=== PATIENT | female | born 1935 | race Caucasian/White ===

== ENCOUNTER 2016-10-07 03:49 | Inpatient (IN) | payer OTHER ==
[~2016-10-07] VITALS: Ht 152.4 cm; Wt 69.4 kg
[~2016-10-07 03:49] MED LIST: ATORVASTATIN CA20 M1; FUROSEMIDE20 M1 PO; LISINOPRIL40 M1 PO; MAGNESIUM PO; VITAMIN B12 PO; VITAMIN D31000 UNI1 PO; ZINC50 M2 PO
[2016-10-07] MEDS ORDERED: PRILOSEC OTC20 M1 PO (10:24)
[2016-10-07] MEDS ORDERED: DILAUDID2 M1 PO (10:24)
[2016-10-07] MEDS ORDERED: ASPIRIN EC325 M2 PO (10:24)
[2016-10-07] MEDS ORDERED: COLACE100 M1 PO (10:24)
[2016-10-07] MEDS ORDERED: MIRALAX17 G1 PO (10:24)
--- NOTE | 2016-10-07 10:27 | Patient Discharge Instructions ---
Discharge Instructions General Discharge Information You were seen/treated for: Right Knee pain secondary to osteoarthritis You had these procedures: Right total knee replacement Watch for these problems: Increasing pain, redness, warmth, swelling. Drainage of any type from incision. Inability to bear weight on right leg. Fever greater than 101.5. Do not soak the wound: Yes No bath, but you may shower: Yes Other wound care: Keep wound clean and dry Special Instructions: Incision: Dry dressing. May shower. No baths. No ointments of any kind. Ice as needed. Bowel regimen: Colace and or MiraLAX Weight-bearing as tolerated Follow-up with Dr. Angel in 6 weeks. Call office for fevers greater than 101.5, excessive drainage or inability to bear weight on operative extremity. Visiting nurse will change dressing. Diet Continue normal diet: Yes Recommended Diet: Heart Healthy Additional DIET Information: Advance as tolerated Activity Full Activity/No Limits: No Activity Self Limited: Yes Pounds, do NOT lift more than: 10 Additional ACTIVITY Info: Weight-bear as tolerated on right leg Acute Coronary Syndrome Inclusion Criteria At DC or during hospital stay patient has or had the following: ACS DIAGNOSIS No Discharge Core Measures Meds if any: Prescribed or Continued at Discharge Meds if any: NOT Prescribed or Continued at Discharge Congestive Heart Failure Inclusion Criteria At DC or during hospital stay patient has or had the following: CHF DIAGNOSIS No Discharge Core Measures Meds if any: Prescribed or Continued at Discharge Meds if any: NOT Prescribed or Continued at Discharge Cerebrovascular accident Inclusion Criteria At DC or during hospital stay patient has or had the following: CVA/TIA Diagnosis No Discharge Core Measures Meds if any: Prescribed or Continued at Discharge Meds if any: NOT Prescribed or Continued at Discharge Venous thromboembolism Inclusion Criteria VTE Diagnosis No VTE Type NONE VTE Confirmed by (Test) NONE Discharge Core Measures - Per Current guidelines, there needs to be overlap - treatment for the first 5 days of Warfarin therapy. - If discharged on Warfarin prior to 5 days of - overlap therapy, the patient will need to be - assessed for post discharge needs including - *Post discharge parental anticoagulation - *Warfarin and/or parental anticoagulation education - *Follow up date to check INR post discharge At least 5 days overlap therapy as Inpatient No Meds if any: Prescribed or Continued at Discharge Note: Overlap Therapy is Warfarin and Anticoagulant Meds if any: NOT Prescribed or Continued at Discharge
--- NOTE | 2016-10-07 10:28 | Admission Core Measures ---
Admission Meds I reviewed the following Meds: Current Medications Sig/Justo Start time Last Medication Dose Stop Time Status Admin Acetaminophen 975 MG ONCE 10/07 0000 NR (Tylenol) 10/07 2358 Atorvastatin Calcium 20 MG QPM 10/07 2199 UNVr (Lipitor) Cefazolin Sodium 2,000 MG ONCE 10/07 0000 NR (Kefzol-Ancef Inj) 10/07 2358 Furosemide 20 MG .[D] 10/07 1015 UNVr (Lasix) Lisinopril 40 MG QPM 10/07 2199 UNVr (Prinivil) Oxycodone HCl 10 MG ONCE 10/07 0000 NR (Roxicodone) 10/07 2358 Ropivacaine 500 ML ONCE ONE 10/07 0830 AC (NAROPIN) 10/09 0209 ON-Q Ball 1 BAG Acute Coronary Syndrome Inclusion Criteria ACS Diagnosis No Inpatient Core Measures LDL Reminder: If No, please order W/I first 24hr of stay Congestive Heart Failure Inclusion Criteria CHF Diagnosis No Cerebrovascular accident Inclusion Criteria CVA/TIA Diagnosis No Inpatient Core Measures Bedside Swallow Eval Reminder: If BSE failed, place ST order Antithrombotic Reminder: Order Antithrombotic Medication by end of day 2 Antithrombotic Reminder: Document Reason Antithrombotic Not ordered by end of day 2 AFIB/Flutter Reminder: If Present, add to problem list AFIB/Flutter Reminder: Order Anticoag Medication for pts with AFIB/Flutter Atherosclerosis Reminder: If Present, add to problem list LDL Reminder: If No, please order W/I first 24hr of stay PT Order Reminder: If No, please order Venous thromboembolism Inpatient Core Measures VTE Risk Factors: Age > 40, Surgery No [facility] VTE prophylaxis d/t No contraindications No VTE Pharm Prophylaxis d/t No contraindications Inclusion Criteria - Per Current guidelines, there needs to be overlap - treatment for the first 5 days of Warfarin therapy. - Parenteral Anticoagulation (IV or SC) needs to be - given along with Warfarin therapy. VTE Diagnosis No VTE Type NONE VTE Confirmed by (Test) NONE Problem List As ranked by this Provider includes Assessment & Plan 1. Unilateral primary osteoarthritis, right knee HOME MEDS Home Med List Aspirin (Ecotrin*) 325 MG TABLET. 1 TAB PO BID ANTICOAGULATION Cholecalciferol (Vitamin D3) (Vitamin D3) 1,000 UNIT CAPSULE 2 TAB PO DAILY PROPHO (Reported) Docusate Sodium (Colace) 100 MG CAPSULE 1 CAP PO BID CONSITPATION Furosemide 20 MG TABLET 20 MG PO D EDEMA (Reported) Hydromorphone HCl (Dilaudid) 2 MG TABLET 1-2 TAB PO Q4-6 PRN PAIN Lisinopril 40 MG TABLET 40 MG PO D BP (Reported) [MAGNESIUM] 250 MG 1 TAB PO DAILY PROPHO (Reported) Omeprazole Magnesium (Prilosec Otc) 20 MG TABLET.DR 1 TAB PO DAILY GI PROTECTION Polyethylene Glycol 3350 (Miralax) 17 GRAM POWD.PACK 1 PAC PO DAILY CONSTIPATION [VITAMIN B12] 500 MG 1 TAB PO DAILY PROPHP (Reported) ZINC 50 MG TABLET 1 TAB PO DAILY PROPHO (Reported)
--- NOTE | 2016-10-07 10:30 | Surgical Discharge Summary ---
Visit Information Visit Dates Admission Date: 10/07/16 Discharge Date: 10/09/16 History of Present Illness Chief Complaint: Right knee pain Surgical History Pertinent Surgical History: non-contributory Review of Systems: See H&P Hospital Course Course Attending Physician: SHANIQUE LOJA MD Primary Care Physician: JET LORA MD Hospital Course: Rosa was admitted to the hospital on 10/07/2016 for an elective right total knee replacement. She tolerated the procedure well. She was transferred to a general surgical floor. Her diet was advanced and tolerated. Her vital signs were stable and within normal limits. She voided spontaneously. Her pain was well controlled with oral pain medications. She was evaluated and treated by physical therapy. She was deemed appropriate for discharge. Allergies: Coded Allergies: No Known Allergies (10/01/16) Disposition Summary Disposition Principal Diagnosis: Right knee unilateral primary osteoarthritis Additional Diagnosis: None Discharge Disposition: home health services Discharge Instructions General Discharge Information Code Status: Full Code Patient's Diet: Heart healthy, advance as tolerated Patient's Activity: Weight-bear as tolerated on right leg Follow-Up Instructions/Appts: Incision: Dry dressing. May shower. No baths. No ointments of any kind. Ice as needed. Bowel regimen: Colace and or MiraLAX Weight-bearing as tolerated Follow-up with Dr. Loja in 6 weeks. Call office for fevers greater than 101.5, excessive drainage or inability to bear weight on operative extremity. Visiting nurse will change dressing. Medications at Discharge Discharge Medications: Continue taking these medications: Lisinopril (Lisinopril) 40 MG TABLET 40 Milligram ORAL Every Day Instructions: NIGHTLY Comments: Last Taken: 10/08/16 Time: 900 PM Atorvastatin Calcium (Atorvastatin Calcium) 20 MG TABLET Instructions: NIGHTLY Comments: Last Taken: 10/08/16 Time: 900 PM Furosemide (Furosemide) 20 MG TABLET 20 Milligram ORAL Every Day Comments: Last Taken: 10/09/16 Time: 1000 Cholecalciferol (Vitamin D3) (Vitamin D3) 1,000 UNIT CAPSULE 2 Tablet ORAL DAILY Comments: NOT GIVEN IN HOSPITAL [VITAMIN B12] 500 MG 1 Tablet ORAL DAILY Comments: NOT GIVEN IN HOSPITAL ZINC (ZINC) 50 MG TABLET 1 Tablet ORAL DAILY Comments: NOT GIVEN IN HOSPITAL [MAGNESIUM] 250 MG 1 Tablet ORAL DAILY Comments: NOT GIVEN IN HOSPITAL Start taking the following new medications: Aspirin (Ecotrin*) 325 MG TABLET.DR 1 Tablet ORAL TWICE DAILY Qty = 60 No Refills Comments: Last Taken: 10/09/16 Time: 1000 Docusate Sodium (Colace) 100 MG CAPSULE 1 Capsule ORAL TWICE DAILY Qty = 14 No Refills Instructions: DISCONTINUE USE IF YOU DEVELOP LOOSE STOOL OR DIARRHEA Comments: Last Taken: 10/09/16 Time: 1000 Hydromorphone HCl (Dilaudid) 2 MG TABLET 1-2 Tablet ORAL EVERY 4-6 HOURS as needed for PAIN Qty = 36 No Refills Comments: Last Taken: 10/09/16 Time: 700 AM Polyethylene Glycol 3350 (Miralax) 17 GRAM POWD.PACK 1 Packet ORAL DAILY Qty = 7 No Refills Instructions: dissolve in water, DISCONTINUE USE IF YOU DEVELOP LOOSE STOOL OR DIARRHEA Comments: Last Taken: 10/09/16 Time: 1000 Omeprazole Magnesium (Prilosec Otc) 20 MG TABLET.DR 1 Tablet ORAL DAILY Qty = 30 No Refills Comments: Last Taken: 10/09/16 Time: 700 AM
--- NOTE | 2016-10-07 14:23 | Operative Report ---
Operative/Inv Procedure Report Surgery Date: 10/07/16 Name of Procedure: Right total knee replacement Pre-Operative Diagnosis: Primary right knee DJD Post-Operative Diagnosis: Same Estimated Blood Loss: 50ml to 100ml Surgeon/Security And Privacy Consultant: FREEDOM TROY,SHANIQUE Hardin Anesthesia: block Operative/Procedure Note Note: Description of Procedure: The patient was taken to the operating room and positively identified. After induction of spinal anesthesia and administration of appropriate pre-operative antibiotics, the patient was positioned supine on the operating room table and all bony prominences were well padded. A well-padded pneumatic tourniquet was placed on the right upper thigh. After performing a surgical timeout, the right lower extremity was prepped and draped in the usual sterile fashion. After exsanguination with Esmarch the tourniquet was inflated to 250mm of mercury. A standard medial parapatellar approach was made to the knee. This was carried down through skin and subcutaneous tissue to the level of the fascia. Meticulous hemostasis was maintained with Bovie electrocautery. The extensor mechanism and patellar retinaculum were opened sharply and the patella was everted. The infrapatellar fat was resected in order to improve exposure. Osteophytes were trimmed from the patella and femoral condyles and the patella was re-everted and tucked laterally. A medial release was performed and the cruciate ligaments were resected. The tibia was then subluxed anteriorly. Utilizing the appropriate extra-medullary guide, the proximal tibia was trimmed perpendicular to the long axis of the tibial shaft. Attention was then turned to the femur. After opening the medullary canal, the distal femoral cut was made in 6 degrees of valgus utilizing the appropriate intra-medullary guide. The extension gap was checked and found to be appropriate. The femur was then sized and the remainder of the femoral cuts were made with a size 3 4-in-1 femoral cutting guide. The flexion gap was checked and found to be symmetric and appropriate. The knee was then trialed with a size 3 femoral component, a size 9 tibial component and a size 32 mm polyethylene insert. The patella was trimmed to accept an A[patella] patella. This yielded excellent range of motion , stability and patellar tracking. All trial components were removed and the knee was copiously irrigated with sterile saline. All components were cemented into place with Patricia Simplex cement. All the components were of the Patricia Triathlon knee system of the above stated sizes. The knee was again irrigated after cementation. The extensor mechanism and patellar retinaculum were repaired using interrupted #1 vicryl suture. The skin was re-approximated with 2-0 vicryl and closed with jaun. A sterile dressing was applied, the tourniquet was deflated, the patient was awakened and taken to the recovery room in satisfactory condition.
[2016-10-07 15:00] VITALS: BP 122/68
--- NOTE | 2016-10-07 15:30 | PN- Orthopedic ---
Subjective Subjective: Postop day 0 status post right total knee arthroplasty. Patient was complaining of moderate pain, received a dose of pain medication and is comfortable. She has an On-Q, she has no other complaints. Objective Vital Signs and I&Os Vital Signs Date Time Temp Pulse Resp B/P Pulse O2 O2 Flow FiO2 Ox Delivery Rate 10/07 1500 98.4 82 18 122/68 96 Room Air Room Air Physical Exam: Well-developed well-nourished no apparent distress. HEENT: Atraumatic, extraocular motion intact Neck: Supple, no lymphadenopathy Respiratory: No respiratory distress Extremities: No edema RIGHT lower extremity dressing in place, Range of motion is 0-[address] ALPS in place Neurovascularly intact distally Bilateral calves are supple, nontender. Neuro: Alert and oriented x3 Psych: Mood affect normal, normal memory normal judgment. Skin: Warm and dry, no rash on exposed skin Assessment/Plan Assessment/Plan Postop day 0 status post right total knee arthroplasty. -Aspirin 325 mg by mouth twice a day for DVT prophylaxis. -Prilosec for GI prophylaxis -Pain medication as needed -Out of bed with physical therapy, weightbearing as tolerated, work on knee range of motion -Ancef For infectious prophylaxis for 2 doses -on-Q per anesthesia -History of high cholesterol hypertension continue lisinopril atorvastatin Lasix. Will monitor. -History of diabetes, not currently on any medication for diabetes as outpatient , will check fingersticks and give insulin as needed Core Measures/Miscellaneous Venous Thromboembolism VTE Risk Factors: Age > 40, Surgery VTE Contraindications: No Contraindications VTE Diagnosis: No VTE Type: NONE VTE Confirmed by (Test): NONE Beta Joel Is Beta Joel a Home Med? No Antibiotics Is Patient on Antibiotics? Yes If Yes: prophylaxis
[2016-10-07 17:00] VITALS: BP 130/70
[2016-10-07 19:30] VITALS: BP 132/62
[2016-10-07 21:08] VITALS: BP 126/64
--- NOTE | 2016-10-08 00:16 | NUR ---
ALERT AND ORIENTED X 3. VITAL SIGNS STABLE. DENIES CHEST PAIN. + PULSES DSG C/D/I. MEDICATION GIVEN FOR PAIN WILL CONTINUE TO MONITOR
[2016-10-08 04:00] VITALS: BP 135/60
[2016-10-08 07:44] VITALS: BP 118/57
--- NOTE | 2016-10-08 07:56 | PN- Orthopedic ---
Subjective Subjective: The patient was seen this morning postoperatively day #1. She reports that her pain is under adequate control and has no other complaints at the current time. Objective Vital Signs and I&Os Vital Signs Date Time Temp Pulse Resp B/P Pulse O2 O2 Flow FiO2 Ox Delivery Rate 10/08 0744 98.4 58 20 118/57 93 Room Air 10/08 0400 99.3 64 20 135/60 95 Room Air 10/07 2238 66 119/60 10/07 2108 97.8 85 20 126/64 93 Room Air 10/07 1930 98.8 92 18 132/62 94 Room Air 10/07 1700 98.6 85 20 130/70 96 Room Air 10/07 1500 98.4 82 18 122/68 96 Room Air Room Air Intake & Output 10/08 0800 10/08 0000 10/07 1600 10/07 0800 10/07 0000 /14 1600 Intake Total 820 400 Output Total 600 900 Balance 220 -500 Intake, IV 700 Intake, Oral 120 400 Output, Urine 600 900 Patient 153 lb Weight Physical Exam: Gen.: Alert and in no obvious distress Skin: Warm and dry Extremities: Bilateral lower extremities are warm without calf tenderness or significant edema. Gross motor and sensory are intact. Right lower extremity surgical dressing is clean, dry, and intact without signs of infection. There is an On-Q pain pump in place. Assessment/Plan Assessment/Plan Assessment: 81-year-old female status post right total knee arthroplasty postoperative day #1. The patient is progressing as expected and her pain is under adequate control. Plan: Out of bed with physical therapy patient is weightbearing as tolerated Continue current pain regiment Hep-Lock IV fluids and DC Butcher catheter Follow-up morning laboratory studies GI and DVT prophylaxis Incentive spirometry Aspirin 325 mg by mouth twice a day Core Measures/Miscellaneous Venous Thromboembolism VTE Risk Factors: Age > 40, Surgery VTE Contraindications: No Contraindications VTE Diagnosis: No VTE Type: NONE VTE Confirmed by (Test): NONE Beta Joel Is Beta Joel a Home Med? No Antibiotics Is Patient on Antibiotics? No
[2016-10-08 08:48] LABS: ABSOLUTE BASOPHIL COUNT 0 /CUMM (0.0-0.2); ABSOLUTE EOSINOPHIL COUNT 0 /CUMM (0.0-0.7); ABSOLUTE GRANULOCYTE CT 11.8 /CUMM (1.4-6.5); ABSOLUTE LYMPH COUNT 1.1 /CUMM (1.2-3.4); ABSOLUTE MONOCYTE COUNT 0.9 /CUMM (0.10-0.60); BASOPHIL % 0.1 % (0.0-2.0); EOSINOPHIL % 0 % (0-5); GRANULOCYTE % 85.7 % (42.2-75.2); HEMATOCRIT 31.7 % (37-47); MEAN CORPUSCULAR VOLUME 90.9 FL (81.0-99.0); MEAN PLATELET VOLUME 7.8 FL (7.4-10.4); PLATELET COUNT 210 /CUMM (130-400); RBC DISTRIBUTION WIDTH 14.2 % (11.5-14.5); RED BLOOD CELL CT 3.49 /CUMM (4.20-5.40); WHITE BLOOD CELL COUNT 13.8 /CUMM (4.8-10.8)
[2016-10-08 11:00] VITALS: BP 116/58
[2016-10-08 14:19] VITALS: BP 103/52
[2016-10-08 18:11] VITALS: BP 122/62
[2016-10-08 22:55] VITALS: BP 126/70
[2016-10-09 06:48] VITALS: BP 140/82
--- NOTE | 2016-10-09 08:12 | PN- Orthopedic ---
Subjective Subjective: No acute events overnight. Pain well controlled. Tolerating diet, voiding spontaneously. Anticipates discharge home, however has not cleared PT, needs to ambulate stairs. Objective Vital Signs and I&Os Vital Signs Date Time Temp Pulse Resp B/P Pulse O2 O2 Flow FiO2 Ox Delivery Rate 10/09 0648 98.4 84 20 140/82 93 10/08 2255 97.7 80 18 126/70 95 Room Air 10/08 2100 78 122/62 10/08 1811 99.0 78 18 122/62 93 Room Air 10/08 1419 98.8 59 20 103/52 95 Room Air 10/08 1100 98.2 64 18 116/58 94 Room Air Room Air Intake & Output 10/09 1600 10/09 0800 10/09 0000 10/08 1600 10/08 0800 10/08 0000 Intake Total 800 800 820 400 Output Total 250 700 650 600 900 Balance -250 100 150 220 -500 Intake, IV 700 Intake, Oral 800 800 120 400 Output, Urine 250 700 650 600 900 Physical Exam: General: CAOx3, NAD. Lungs: Normal work of breathing Extremities: Right knee dressing clean, dry, intact, new dressing applied. Dass[place] in place, no drainage. No erythema or signs of infection. 2+ DP pulses bilaterally. 5/5 dorsi/plantarflexion. No calf tenderness. Current Medications: Current Medications Sig/Justo Start time Last Medication Dose Route Stop Time Status Admin Acetaminophen 650 MG .STK-MED ONE 10/08 2251 DC PO 10/08 225 Acetaminophen 1,000 MG Q6P PRN 10/07 1515 DC IV 10/08 1506 Acetaminophen 650 MG Q4P PRN 10/07 1515 AC 10/08 PO 225 Aspirin 325 MG BID 10/07 2199 AC 10/08 PO 224 Atorvastatin Calcium 20 MG QPM 10/07 220 AC 10/08 PO 205 Docusate Sodium 100 MG BID 10/07 2199 AC 10/08 PO 205 Furosemide 20 MG DAILY 10/08 1000 AC 10/08 PO 09 Hydromorphone HCl 2 MG Q4P PRN 10/07 1515 AC PO Hydromorphone HCl 4 MG Q4P PRN 10/07 1515 AC 10/09 PO 0710 Insulin Human Regular 0 TIDAC/HS 10/07 1700 AC 10/09 SC 0807 Lisinopril 40 MG QPM 10/07 2200 AC 10/08 PO 2100 Melatonin 5 MG AT BEDTIME PRN 10/08 2215 AC 10/08 PO 2247 Morphine Sulfate 2 MG Q2P PRN 10/07 1515 AC 10/07 IV 1905 Omeprazole 20 MG DAILY AC 10/08 0700 AC 10/09 PO 0707 Ondansetron HCl 4 MG Q6P PRN 10/07 1515 AC IV Polyethylene Glycol 17 GM DAILY 10/08 1000 AC 10/08 PO 0906 Promethazine HCl 12.5 MG Q6P PRN 10/07 1515 AC IV 10/14 1014 Ropivacaine 500 ML ONCE ONE 10/07 0830 DC 10/07 ON-Q Ball 1 BAG INJ 10/09 0209 1509 Results Last 48 Hours of Labs: Laboratory Tests 10/08 0640 Chemistry Sodium (137 - 145 mmol/L) 136 L Potassium (3.5 - 5.1 mmol/L) 4.0 Chloride (98 - 107 mmol/L) 102 Carbon Dioxide (22 - 30 mmol/L) 26 Anion Gap (5 - 16) 8 BUN (7 - 17 mg/dL) 16 Creatinine (0.5 - 1.0 mg/dL) 0.7 Estimated GFR (>60 ml/min) > 60 BUN/Creatinine Ratio (7 - 25 %) 22.9 Hematology CBC w Diff MAN DIFF ORDERED WBC (4.8 - 10.8 /CUMM) 13.8 H RBC (4.20 - 5.40 /CUMM) 3.49 L Hgb (12.0 - 16.0 G/DL) 10.5 L Hct (37 - 47 %) 31.7 L MCV (81.0 - 99.0 FL) 90.9 MCH (27.0 - 31.0 PG) 30.0 RDW (11.5 - 14.5 %) 14.2 Plt Count (130 - 400 /CUMM) 210 MPV (7.4 - 10.4 FL) 7.8 Gran % (42.2 - 75.2 %) 85.7 H Lymphocytes % (20.5 - 51.1 %) 8.0 L Monocytes % (1.7 - 9.3 %) 6.2 Eosinophils % (0 - 5 %) 0 Basophils % (0.0 - 2.0 %) 0.1 Absolute Granulocytes (1.4 - 6.5 /CUMM) 11.8 H Segmented Neutrophils (42.2 - 75.2 %) 76 H Band Neutrophils (0.0 - 5.0 %) 10 H Absolute Lymphocytes (1.2 - 3.4 /CUMM) 1.1 L Lymphocytes (20.5 - 51.1 %) 5 L Monocytes (1.7 - 9.3 %) 9 Absolute Monocytes (0.10 - 0.60 /CUMM) 0.9 H Absolute Eosinophils (0.0 - 0.7 /CUMM) 0 Absolute Basophils (0.0 - 0.2 /CUMM) 0 Platelet Estimate (ADEQUATE) ADEQUATE Normocytic RBCs VERIFIED Normochromic RBCs VERIFIED PUBS MCHC (33.0 - 37.0 G/DL) 33.0 Assessment/Plan Assessment/Plan This is a 81 year old female s/p right total knee replacement on 10/07/2016, postoperative day 2. - pain control: dilaudid po, acetaminophen, toradol IV, discontinue morphine IV - bowel regimen: Miralax daily, Colace BID. - Diabetic diet - Anticoagulation: Aspirin 325mg BID - home medications: lasix, lisinopril, atorvastain - CBC reviewed, follow up am labs: BMP - Continue PT, weight bearing as tolerated to operative extremity - Dispo: Home today pending PT clearance with stairs Core Measures/Miscellaneous Venous Thromboembolism VTE Risk Factors: Age > 40, Surgery VTE Contraindications: No Contraindications VTE Diagnosis: No VTE Type: NONE VTE Confirmed by (Test): NONE Beta Joel Is Beta Joel a Home Med? No Antibiotics Is Patient on Antibiotics? No
[2016-10-09 14:42] VITALS: BP 118/60
== END 2016-10-09 14:55 | disposition home health service (06) | DRG 470 ==
LOC: ENRESERVTM → ENRESERVDT → ENPENDDIS 03:49 → SDA 03:49 → 2NB 03:49 → SDA 07:00 → 2NB 15:02
PROVIDERS: Nurse Practitioner; ADMIT Orthopaedic Surgery
PROC: 0SRC0J9 Replacement of Right Knee Joint with Synthetic Substitute, Cemented, Open Approach (ICD-10-PCS; principal; 2016-10-07)
DX: M17.11 Unilateral primary osteoarthritis, right knee (principal); E11.9 Type 2 diabetes mellitus without complications; I10 Essential (primary) hypertension; E78.2 Mixed hyperlipidemia; Z85.42 Personal history of malignant neoplasm of other parts of uterus
CPT/HCPCS: 2NBP; 82436; 88305; 97110-GO; 97116-GO; 97161-GP; 97530-GO; C1713; J0131; J0690; J2405; J2550; J2795; J7042